=== PATIENT | male | born 1970 | race Caucasian/White ===

== ENCOUNTER 2024-01-03 06:23 | Day surgery (SDC) | payer OTHER, SELFPAY ==
[2024-01-03] VITALS (11 sets, daily range): BP systolic 95–166; BP diastolic 51–100; BMI 43.1
[2024-01-03] MEDS: NORMOSOL-R 1000 IV (08:35)
[2024-01-03] MEDS: Pyridium 200 MG PO (11:32)
[2024-01-06 16:32] LABS: Stone Analysis Mass 167 mg
== END 2024-01-03 12:50 | disposition home or self-care (01) ==
LOC: SDS 06:23
PROVIDERS: ATTENDING PHYSICIAN Urology
DX: N20.1 Calculus of ureter (principal)
CPT/HCPCS: 52352; 74018; 76000; 82365; C1769

== ENCOUNTER → 2024-04-03 15:05 | Outpatient (REF) | payer OTHER, SELFPAY ==
[2024-04-03 16:32] LABS: Urine Albumin Negative (Neg - Trace); Urine Bilirubin Negative (Negative); Urine Character Slightly Cloudy (Clear); Urine Color Yellow; Urine Glucose Negative (Negative); Urine Ketone Trace (Negative); Urine Leukocyte 2+ (Negative); Urine Nitrite Positive (Negative); Urine Occult Blood Trace (Negative); Urine Specific Gravity 1.025 (<1.030); Urine Urobilinogen Negative (Neg - 1+)
[2024-04-03 16:41] LABS: Urine Red Blood Cell 0-2 /HPF (0-2)
[2024-04-03 16:42] LABS: Urine Bacteria Many (Negative); Urine White Cell 30-40 /HPF (0-5)
== END ==
LOC: REG 15:05
PROVIDERS: ATTENDING PHYSICIAN Urology
DX: N39.0 Urinary tract infection, site not specified (principal); N20.0 Calculus of kidney
CPT/HCPCS: 74018; 81003; 81015; 87077; 87086; 87186

== ENCOUNTER 2024-11-05 16:18 | Outpatient (RCR) | payer OTHER, SELFPAY | END 2024-11-05 23:59 | disposition home or self-care (01) | LOC: RPT 16:18 | PROVIDERS: ATTENDING PHYSICIAN Podiatrist Foot & Ankle Surgery | DX: M48.02 Spinal stenosis, cervical region (principal); G99.2 Myelopathy in diseases classified elsewhere; G20.A1 Parkinson's disease without dyskinesia, without mention of fluctuations; Z96.652 Presence of left artificial knee joint; R29.6 Repeated falls; R26.89 Other abnormalities of gait and mobility; Z73.6 Limitation of activities due to disability; Z98.1 Arthrodesis status | CPT/HCPCS: 97010; 97110; 97112; 97163; 97530 ==

== ENCOUNTER 2024-12-07 13:52 | Outpatient (RCR) | payer BC, SELFPAY | END 2024-12-07 23:59 | disposition home or self-care (01) | LOC: RPT 13:52 | PROVIDERS: ATTENDING PHYSICIAN Podiatrist Foot & Ankle Surgery | DX: M48.02 Spinal stenosis, cervical region (principal); G99.2 Myelopathy in diseases classified elsewhere; G20.A1 Parkinson's disease without dyskinesia, without mention of fluctuations; Z96.652 Presence of left artificial knee joint; R29.6 Repeated falls; R26.89 Other abnormalities of gait and mobility; Z73.6 Limitation of activities due to disability; Z98.1 Arthrodesis status | CPT/HCPCS: 97010; 97110; 97112; 97116; 97140; 97163; 97530 ==

== ENCOUNTER 2025-01-04 13:13 | Outpatient (RCR) | payer OTHER, SELFPAY | END 2025-01-04 23:59 | disposition home or self-care (01) | LOC: RPT 13:13 | PROVIDERS: ATTENDING PHYSICIAN Podiatrist Foot & Ankle Surgery | DX: M48.02 Spinal stenosis, cervical region (principal); G20.A1 Parkinson's disease without dyskinesia, without mention of fluctuations; G99.2 Myelopathy in diseases classified elsewhere; Z96.652 Presence of left artificial knee joint; R26.89 Other abnormalities of gait and mobility; Z73.6 Limitation of activities due to disability; R29.6 Repeated falls; Z98.1 Arthrodesis status | CPT/HCPCS: 97110; 97112; 97140; 97530 ==

== ENCOUNTER 2025-02-01 14:14 | Outpatient (RCR) | payer OTHER, SELFPAY | END 2025-02-01 23:59 | disposition home or self-care (01) | LOC: RPT 14:14 | PROVIDERS: ATTENDING PHYSICIAN Podiatrist Foot & Ankle Surgery | DX: M48.02 Spinal stenosis, cervical region (principal); G20.A1 Parkinson's disease without dyskinesia, without mention of fluctuations; Z98.1 Arthrodesis status; R26.89 Other abnormalities of gait and mobility; G99.2 Myelopathy in diseases classified elsewhere; Z73.6 Limitation of activities due to disability; R26.2 Difficulty in walking, not elsewhere classified; Z96.652 Presence of left artificial knee joint; R29.6 Repeated falls | CPT/HCPCS: 97110; 97112; 97140; 97530 ==

== ENCOUNTER 2025-03-06 14:02 | Outpatient (RCR) | payer OTHER, SELFPAY | END 2025-03-06 23:59 | disposition home or self-care (01) | LOC: RPT 14:02 | PROVIDERS: ATTENDING PHYSICIAN Podiatrist Foot & Ankle Surgery | DX: M48.02 Spinal stenosis, cervical region (principal); G20.A1 Parkinson's disease without dyskinesia, without mention of fluctuations; G99.2 Myelopathy in diseases classified elsewhere; R26.89 Other abnormalities of gait and mobility; Z73.6 Limitation of activities due to disability; R26.2 Difficulty in walking, not elsewhere classified; Z96.652 Presence of left artificial knee joint; Z98.1 Arthrodesis status; R29.6 Repeated falls | CPT/HCPCS: 97110; 97112; 97116; 97140; 97530 ==

== ENCOUNTER 2025-04-04 15:46 | Outpatient (RCR) | payer OTHER, SELFPAY | END 2025-04-04 23:59 | disposition home or self-care (01) | LOC: RPT 15:46 | PROVIDERS: ATTENDING PHYSICIAN Podiatrist Foot & Ankle Surgery | DX: M48.02 Spinal stenosis, cervical region (principal); G20.A1 Parkinson's disease without dyskinesia, without mention of fluctuations; G99.2 Myelopathy in diseases classified elsewhere; R26.89 Other abnormalities of gait and mobility; Z73.6 Limitation of activities due to disability; R26.2 Difficulty in walking, not elsewhere classified; Z96.652 Presence of left artificial knee joint; Z98.1 Arthrodesis status; R29.6 Repeated falls | CPT/HCPCS: 97110; 97112; 97116; 97140; 97530 ==

== ENCOUNTER 2025-05-03 13:37 | Outpatient (RCR) | payer OTHER, SELFPAY | END 2025-05-03 23:59 | disposition home or self-care (01) | LOC: RPT 13:37 | PROVIDERS: ATTENDING PHYSICIAN Podiatrist Foot & Ankle Surgery | DX: M48.02 Spinal stenosis, cervical region (principal); G20.A1 Parkinson's disease without dyskinesia, without mention of fluctuations; G99.2 Myelopathy in diseases classified elsewhere; R26.89 Other abnormalities of gait and mobility; Z73.6 Limitation of activities due to disability; R26.2 Difficulty in walking, not elsewhere classified; Z96.652 Presence of left artificial knee joint; Z98.1 Arthrodesis status; R29.6 Repeated falls | CPT/HCPCS: 97110; 97112; 97116; 97530 ==

== ENCOUNTER 2025-05-21 18:01 | Outpatient (RCR) | payer OTHER, SELFPAY | END 2025-05-21 23:59 | disposition home or self-care (01) | LOC: RPT 18:01 | PROVIDERS: ATTENDING PHYSICIAN Podiatrist Foot & Ankle Surgery | DX: M48.02 Spinal stenosis, cervical region (principal); G20.A1 Parkinson's disease without dyskinesia, without mention of fluctuations; G99.2 Myelopathy in diseases classified elsewhere; R26.89 Other abnormalities of gait and mobility; Z73.6 Limitation of activities due to disability; Z96.652 Presence of left artificial knee joint; Z98.1 Arthrodesis status; R29.6 Repeated falls; R26.2 Difficulty in walking, not elsewhere classified | CPT/HCPCS: 97110; 97112; 97530 ==